=== PATIENT | male | born 1975 | race Caucasian/White ===

== ENCOUNTER 2016-02-28 19:46 | Emergency (ER) | payer OTHER ==
[~2016-02-28] VITALS: Ht 175.3 cm; Wt 97.6 kg
[~2016-02-28 19:46] MED LIST: NO HOME MEDS
[2016-02-28 20:41] LABS: HEMATOCRIT 44.8 % (38.0-50.0); MCH 31.9 PG (29.0-34.0); MCHC 36.2 G/DL (30.0-36.0); MCV 88.2 FL (86-99); MEAN PLAT.VOLUME 10.2 uM^3 (9.0-12.4); PLATELET COUNT 256 K/uL (156-360); RBC DIS.WIDTH-CV 12.8 % (11.8-14.6); RBC DIS.WIDTH-SD 40.7 % (39-53); RED BLOOD COUNT 5.08 M/uL (4.00-5.50); WHITE BLOOD COUNT 9.4 K/uL (4.1-10.2)
[2016-02-28 20:53] LABS: CHLORIDE 104 mEq/L (99-109); POTASSIUM 4.1 mEq/L (3.7-5.4); SODIUM 142 mEq/L (136-147)
[2016-02-28 20:55] LABS: GLUCOSE 114 mg/dL (70-99)
[2016-02-28 20:57] LABS: ANION GAP 11 MEQ/L (2-14)
[2016-02-28 20:59] LABS: GFR ESTIMATE (CALCULATED) > 59 mL/min/
[2016-02-28 21:00] LABS: UREA NITROGEN (BUN) 17 mg/dL (9-23)
[2016-02-28 21:02] LABS: TROP-I INTERPRETATION NEGATIVE; TROPONIN-I < 0.01 ng/mL (0.0-0.30)
[2016-02-28 21:22] LABS: CREATINE KINASE 155 IU/L (1-294)
[2016-02-28 21:55] LABS: ADD MIUA? NO; BILIRUBIN NEGATIVE; BLOOD NEGATIVE; COLOR YELLOW ((YELLOW)); GLUCOSE (STRIP) NEGATIVE; KETONES NEGATIVE; LEUKOCYTES NEGATIVE; NITRITE NEGATIVE; PH, URINE 6.5 (5-8); PROTEIN (STRIP) NEGATIVE; UCUL ADDED? NO; UROBILINOGEN 0.2 MG/DL (0.2-1.0)
[2016-02-28] MEDS ORDERED: ATIVAN0.5 MG PO (23:14)
[2016-02-28 23:24] VITALS: BP 146/113
== END 2016-02-28 23:26 | disposition home or self-care (01) ==
LOC: RME 19:46 → EME 19:46 → RME 23:26
PROVIDERS: Physician Assistant
DX: R20.2 Paresthesia of skin (principal); R53.1 Weakness; R07.9 Chest pain, unspecified
CPT/HCPCS: 70450; 71020; 71260; 72125; 80048; 81003; 82550 91; 82607; 84484; 85027; 93005; 99281; 99285; J7030